=== PATIENT | male | born 1945 ===

== ENCOUNTER 2022-01-16 16:36 | Emergency (ER) | payer MEDICARE ==
[~2022-01-16] VITALS: Ht 180.3 cm; Wt 86.4 kg
[2022-01-16 17:07] VITALS: BP 165/83
== END 2022-01-16 21:02 | disposition left against medical advice (07) ==
LOC: ER 16:37
DX: M54.2 Cervicalgia (principal); Z53.21 Procedure and treatment not carried out due to patient leaving prior to being seen by health care provider